=== PATIENT | female | born 1980 | race Caucasian/White ===

== ENCOUNTER 2016-11-18 10:02 | Emergency (ER) | payer BC ==
[~2016-11-18] VITALS: Ht 167.6 cm; Wt 65.8 kg
[2016-11-18 10:06] VITALS: BP 136/102
--- NOTE | 2016-11-18 10:14 | NUR ---
Patient taken to XRAY via wheelchair per tech.
--- NOTE | 2016-11-18 10:26 | NUR ---
Patient back from XRAY via wheelchair per tech.
--- NOTE | 2016-11-18 11:09 | NUR ---
Patient ambulated to bed 03.
--- NOTE | 2016-11-18 11:10 | NUR ---
36F BIB SELF C/O RT ANTERIOR FOOT PAIN, SHARP, NON-RADIATING, 7/10 X 1 WEEK; RT PEDAL PULSE PALPABLE, RT CAP REFILL < 3 SECONDS, NO LOSS OF SENSATION TO RT FOOT AT THIS TIME; NO REDNESS OR SWELLING NOTED TO RT FOOT AT THIS TIME; PT DENIES TRAUMA OR INJUR TO SITE; PT A&OX4, PERRLA, BL LUNG SOUNDS CLEAR, RR EVEN/UNLABORED, SKIN IS WARM/DRY/INTACT AT THIS TIME; PT DENIES N/V/D AT THIS TIME; PT RESTING IN BED W/ HOB ELEVATED AND IN LOWEST POSITION; POSITIONED FOR COMFORT; ER MD MADE AWARE OF STATUS. WILL CONTINUE TO MONITOR.
--- NOTE | 2016-11-18 11:10 | NUR ---
Dr. Farrell evaluating patient at bedside.
[2016-11-18] MEDS ORDERED: IBUPROFEN 600 MG TAB PO ONE (11:15)
--- NOTE | 2016-11-18 11:31 | NUR ---
IBUPROFEN ORDERED BY ER MD DR. BURROWS IN [employer]; PHARMACY CALLED; WILL CONTINUE TO MONITOR.
[2016-11-18] MEDS ORDERED: IBUPROFEN 600 MG TAB PO SCH (11:36)
[2016-11-18 11:53] VITALS: BP 130/82
--- NOTE | 2016-11-18 11:53 | NUR ---
Patient discharged with v/s stable. Written and verbal after care instructions given and explained. Patient alert, oriented and verbalized understanding of instructions. Ambulatory with steady gait. All questions addressed prior to discharge. ID band removed. Patient advised to follow up with PMD. Rx of MOTRIN 600MG TAB given. Patient educated on indication of medication including possible reaction and side effects. Opportunity to ask questions provided and answered.
== END 2016-11-18 11:53 | disposition home or self-care (01) ==
LOC: MED 10:02
DX: S93.601A Unspecified sprain of right foot, initial encounter (principal); F17.200 Nicotine dependence, unspecified, uncomplicated; Z71.6 Tobacco abuse counseling; Z98.890 Other specified postprocedural states; X58.XXXA Exposure to other specified factors, initial encounter; Y93.89 Activity, other specified; Y92.89 Other specified places as the place of occurrence of the external cause; Y99.8 Other external cause status
CPT/HCPCS: 29515; 73630; 99284

== ENCOUNTER 2016-12-11 20:15 | Emergency (ER) | payer BC ==
[~2016-12-11] VITALS: Ht 167.6 cm; Wt 70.3 kg
[2016-12-11 20:27] VITALS: BP 141/90
--- NOTE | 2016-12-11 21:48 | NUR ---
PATIENT TO OF 2
--- NOTE | 2016-12-11 22:00 | NUR ---
PATIENT BEING EVALUATED BY DR. BERUMEN.
--- NOTE | 2016-12-11 22:17 | NUR ---
36/F PRESENT TO ER C/O RT KNEE AND RT FOOT PAIN, NO TRAUMA NOR INJURY FOR A MONTH , XRAY DONE WITH NEGATIVE RESULTS. AAOx4, PERRLA, BREATHING EVEN AND UNLABORED. ERMD NOTIFIED OF PATIENT STATUS.
[2016-12-11] MEDS ORDERED: KETOROLAC 60 MG/2 ML VIAL IM ONE (23:15)
--- NOTE | 2016-12-12 00:31 | NUR ---
Patient discharged with v/s stable. Written and verbal after care instructions given and explained. Patient alert, oriented and verbalized understanding of instructions. Ambulatory with steady gait. All questions addressed prior to discharge. ID band removed. Patient advised to follow up with PMD. Rx of NAPROSYN 500MG given. Patient educated on indication of medication including possible reaction and side effects. Opportunity to ask questions provided and answered.
[2016-12-12 00:32] VITALS: BP 132/88
== END 2016-12-12 00:31 | disposition home or self-care (01) ==
LOC: MED 20:15
DX: M72.2 Plantar fascial fibromatosis (principal); R03.0 Elevated blood-pressure reading, without diagnosis of hypertension
CPT/HCPCS: 73700; 96372; 99284; J1885

== ENCOUNTER 2016-12-14 06:50 | Emergency (ER) | payer BC ==
[~2016-12-14] VITALS: Ht 167.6 cm; Wt 65.8 kg
[2016-12-14 06:59] VITALS: BP 142/83
--- NOTE | 2016-12-14 07:08 | NUR ---
PT TAKEN TO BED 4
--- NOTE | 2016-12-14 07:09 | NUR ---
Dr. Perkins evaluating patient at bedside.
[2016-12-14] MEDS ORDERED: KETOROLAC 60 MG/2 ML VIAL IM ONE (07:30)
--- NOTE | 2016-12-14 07:42 | NUR ---
36/F PRESENT TO ER C/O RT FOOT PAIN x ONE MONTH. PAIN 101/0 ACHING NON-RADIATING, RT FOOT NO REDNESS, NO SWELLING, NO SIGN OF INJURY, NO DEFORMITY AT THIS TIME. AAOX4, PERRLA , BREATHING EVEN AND UNLABORED. ERMD NOTIFIED OF PATIENT STATUS.
--- NOTE | 2016-12-14 08:08 | NUR ---
Patient discharged with v/s stable. Written and verbal after care instructions given and explained. Patient alert, oriented and verbalized understanding of instructions. Ambulatory with steady gait. All questions addressed prior to discharge. ID band removed. Patient advised to follow up with PMD. Rx of TYLENOL WITH CODEINE #3 given. Patient educated on indication of medication including possible reaction and side effects. Opportunity to ask questions provided and answered.
[2016-12-14 08:09] VITALS: BP 132/72
== END 2016-12-14 08:08 | disposition home or self-care (01) ==
LOC: MED 06:50
DX: M79.671 Pain in right foot (principal); M72.2 Plantar fascial fibromatosis; F17.210 Nicotine dependence, cigarettes, uncomplicated
CPT/HCPCS: 96372; 99283; J1885

== ENCOUNTER 2017-03-26 05:22 | Emergency (ER) | payer BC ==
[~2017-03-26] VITALS: Ht 167.6 cm; Wt 65.8 kg
[2017-03-26 05:31] VITALS: BP 131/88
--- NOTE | 2017-03-26 05:36 | NUR ---
Patient ambulated to bed 7. RN evaluating patient at bedside.
[2017-03-26 05:40] VITALS: BP 131/88
--- NOTE | 2017-03-26 05:40 | NUR ---
PATIENT PRESENTS TO ED WITH C/O RT FOOT PAIN . PT DENIES N/V/D; SKIN IS PINK/WARM/DRY; AAOX4 WITH EVEN AND STEADY GAIT; LUNGS CLEAR BL; HR EVEN AND REGULAR; PT DENIES ANY FEVER, CP, SOB, OR COUGH AT THIS TIME; PATIENT STATES PAIN OF 7/10 AT THIS TIME; VSS; PATIENT POSITIONED FOR COMFORT; HOB ELEVATED; BEDRAILS UP X2; BED DOWN. ER MD MADE AWARE OF PT STATUS.
--- NOTE | 2017-03-26 05:50 | NUR ---
Patient discharged with v/s stable. Written and verbal after care instructions given and explained. Patient alert, oriented and verbalized understanding of instructions. Ambulatory with steady gait. All questions addressed prior to discharge. ID band removed. Patient advised to follow up with PMD. Rx of TYLENOL WITH CODEINE given. Patient educated on indication of medication including possible reaction and side effects. Opportunity to ask questions provided and answered.
== END 2017-03-26 05:50 | disposition home or self-care (01) ==
LOC: MED 05:22
DX: G57.61 Lesion of plantar nerve, right lower limb (principal); R03.0 Elevated blood-pressure reading, without diagnosis of hypertension
CPT/HCPCS: 99283